=== PATIENT | male | born 1970 | race Caucasian/White ===

== ENCOUNTER 2021-10-08 10:37 | Inpatient (IN) | payer MEDICARE, MEDICAID ==
[2021-10-08] VITALS (10 sets, daily range): BP systolic 94–127; BP diastolic 53–65
[~2021-10-08] VITALS: Ht 167.6 cm; Wt 100.2 kg
[~2021-10-08 10:37] MED LIST: AMLODIPINE BESY10 MG PO; BENZTROPINE MESY2 MG PO; CLOTRIMAZOLE-BE30 M1 TP; COLACE100 MG PO; FISH OIL 1,001000 M2 PO; FISHOIL; FLONASE 0.05%50 MCG NASAL; FLONASE 0.05%50 MCG NS; FOLIC ACID1 MG PO; GEODON40 MG PO; GEODON60 MG PO; HYDROCERIN CREA1 JAR TOP; HYDROCHLOROTHIA25 M1 PO; LAMISIL AT 1% C12 G1 TP; LIPITOR40 MG PO; LISINOPRIL-HCT1 EACH PO; MELOXICAM7.5 MG PO; METFORMIN HCL500 MG PO; MIRALAX17 GM PO; OMEPRAZOLE20 M2 PO; OYSTER SHELL C1 EA12 PO; OYSTER SHELL C500 MG PO; PHENOBARBITAL30 MG PO; POLYETHYLENE G255 GM PO; TOPAMAX 25 MG T25 MG PG; TOPAMAX200 MG PO; TOPICORT 0.25%15 GM TOP; TRICOR145 MG PO; TRIFLUOPERAZINE10 MG PO; TUCKS MEDICATE1 EAC1; TUMS PO; TYLENOL EXTRA500 MG PO; TYLOX 5-500 CA1 EACH PO; VICODIN 5-5001 EACH PO; ZETIA10 MG PO
[2021-10-08 11:36] LABS: HEMATOCRIT 28.2 % (42.0-52.0); HEMOGLOBIN 10.2 gm/dL (14.0-18.0); MCH 29.8 pg (26.0-34.0); MCV 82.7 fL (80.0-100.0); MPV 7.4 fl. (7.2-11.1); NUCLEATED RBCS 0 /100WBC; PLATELET COUNT* 473 thou/uL (150-400); RBC 3.41 mil/uL (4.50-6.00); RDW-CV 13.4 % (10.5-14.5); WBC 10.7 thou/uL (4.0-11.0)
[2021-10-08 11:42] LABS: CALCIUM 9.4 mg/dL (8.5-10.1)
[2021-10-08 11:49] LABS: POTASSIUM 2.6 mmol/L (3.5-5.1)
[2021-10-08 11:52] LABS: APTT 31.8 Seconds (25.0-31.3); INR 1.3; PROTIME 13.4 Seconds (9.20-11.50)
[2021-10-08 11:53] LABS: ALBUMIN 2.2 g/dL (3.4-5.0); TOTAL PROTEIN 7.5 g/dL (6.4-8.2)
[2021-10-08 12:19] LABS: ABSOLUTE LYMPHOCYTES 0.5 thou/uL (0.8-5.3); ABSOLUTE MONOCYTES 0.2 thou/uL (0.0-1.2)
[2021-10-08 12:20] LABS: PLATELET ESTIMATE INCREASED
--- NOTE | 2021-10-08 12:34 | EKG ---
[place] [address] ELECTROCARDIOGRAM REPORT Name: KIRILLPRATIK Noel Room: [place] [address] ADM IN ..#: [id number] Admission: 10/08/21 Attend Phys: Yareli Mcdermott, Discharge: Date of : 74 Date of Service: 10/08/21 1058 Report #: [id number] THIS REPORT FOR: //name// [facility] ED Test Date: 2021-10-08 Test Time: 10:58:34 Pat Name: PRATIK ROY Department: Room: [facility] Gender: M Service Tester: ELDON : 1970 Requested By: Rm Otero Order Number: [id number] MD: Dayton Suggs Measurements Intervals [place] Rate: 107 P: 25 IL: 183 QRS: 25 QRSD: 104 T: 28 QT: 337 QTc: 450 Interpretive Statements Sinus tachycardia RSR' in V1 or V2, right VCD or RVH Compared to ECG 01/17/2017 21:34:07 Right ventricular hypertrophy now present RSR' in V1 or V2 now present Sinus rhythm no longer present Electronically Signed On 10-08-2021 12:34:51 OFFICE ADMINISTRATION INSTRUCTOR by Dayton Suggs [email or web address] <ELECTRONICALLY SIGNED> By: Dayton Suggs MD, FACC 10/08/21 1234 1058 1058 Dayton Suggs MD, FAC /EPI
[2021-10-08 13:27] LABS: PCO2 33.5 mmHg (35.0-45.0)
[2021-10-08 13:32] LABS: PO2 154.7 mmHg (75.0-100.0)
[2021-10-08 16:55] LABS: CALCIUM 8.3 mg/dL (8.5-10.1); CREATININE 0.8 mg/dL (0.6-1.3)
[2021-10-08 17:34] LABS: POTASSIUM 2.9 mmol/L (3.5-5.1)
[2021-10-08 20:42] LABS: BE -5.5 mmol/L (-2 to +3); PCO2 45.3 mmHg (35.0-45.0)
[2021-10-08 20:45] LABS: PO2 169.9 mmHg (75.0-100.0); pH 7.287 (7.340-7.450)
--- NOTE | 2021-10-08 22:45 | CON ---
[address] [address] CONSULTATION Name: PRATIK ROY Room: [address] IN M.R.#: [id number] Admission: 10/08/21 Attend Phys: Yareli Mcdermott MD Discharge: Date of : 74 Report #: [id number] THIS REPORT FOR: cc: Ina Crespo Angela Jo RNP Pervez, Adeel MD ~ DATE OF CONSULTATION: 10/08/2021 CONSULT HAS BEEN REQUESTED BY: Dr. Mcdermott. INDICATION FOR CONSULTATION: Acute hypoxemic respiratory failure. HISTORY OF PRESENT ILLNESS: This is a 51-year-old gentleman, past medical history is as mentioned below. The patient currently is in respiratory distress and therefore, he is not able to provide a meaningful history or review of systems. According to the records, he has been short of breath and coughing for about 2 weeks. He has not received any COVID-19 vaccine. He is reported to have a history of coronary artery disease. I do not have his previous left ventricular ejection fraction. He is not reported to be a smoker. Currently, the patient is on BiPAP with 100% FiO2. It appeared that his O2 saturation has come up to 99%. However, he remains in respiratory distress and is still breathing at around 50, this is despite a Precedex drip running. His potassium was critically low at 2.6. He is reported to have had 40 of potassium p.o. I do not have a magnesium level. Note that he takes hydrochlorothiazide at home. His D-dimer is critically high at greater than 28. He is not able to provide a further history or review of systems. PAST MEDICAL HISTORY: Coronary artery disease, left ventricular ejection fraction not available. HOME MEDICATIONS: Consistent with history of hypertension, although not listed on the records. Drug overdosage details not available. Paranoia, schizoaffective disorder, hallucinations, anxiety. SOCIAL HISTORY: There is no known history of smoking, ethanol abuse, or drug abuse. CURRENT MEDICATIONS: List in [employer] reviewed. HOME MEDICATIONS: List in [employer] reviewed. ALLERGIES: STRAWBERRY AND POISON OAK. FAMILY HISTORY: [place] [address] CONSULTATION Name: PRATIK ROY Room: [address]#: [id number] Admission: 10/08/21 Attend Phys: Yareli Mcdermott MD Discharge: Date of : 74 Report #: [id number] VACCINATION HISTORY: Not reported to be vaccinated for COVID-19. PHYSICAL EXAMINATION: GENERAL: He is awake, but he is in respiratory distress and therefore unable to provide a history or review of systems. VITAL SIGNS: Heart rate with Precedex is 100, but respiratory rate is 50, blood pressure is 115/81. His O2 saturation has come up to 99% with 100% BiPAP in place. Temperature is 37.2. HEENT: Head is normocephalic and atraumatic. BiPAP in place. NECK: Does not show raised JVP, asymmetry, mass or lymph nodes. CHEST: Symmetrical expansion on inspection and palpation. On auscultation, breath sounds are bilaterally equal. Accessory muscle use tachypnea. HEART: Regular. No murmur. ABDOMEN: Soft and nontender. EXTREMITIES: Lower extremities, trace edema, no calf tenderness. SKIN: Dry and intact. NEUROLOGIC: Moves all extremities bilaterally equally and spontaneously with no focal deficits identified. LABORATORY DATA: The patient's chest x-ray from this morning consistent with ARDS in [facility] reviewed. Acute pulmonary edema can also lead to an identical picture. Venous Dopplers are negative. Lab work in [facility] reviewed. Arterial blood gas in [facility] reviewed. ASSESSMENT AND PLAN: 1. Acute hypoxemic respiratory failure. The patient remains in respiratory distress despite administration of a Precedex drip. Recommend proceeding to endotracheal intubation. Also, recommend placing either a PICC line or central line if both of these are available, then I would prefer a PICC line. Since we currently have limited IV access and his blood pressure is on the lower side and therefore, our ability to administer pressors may be limited. I initially ordered Versed and fentanyl. Certainly if blood pressure remains stable, or we are able to administer low doses of vasopressors if needed, then we can give him propofol instead of Versed as well. We will follow for now. Continue with Precedex drip as well, but I may take it off once he is settled on the ventilator. His blood pressure may drop off this intubated. Her potassium was critically low; therefore, I do not want to give him norepinephrine and therefore, I ordered phenylephrine. If blood pressure drops after potassium replacement, we will switch this over to norepinephrine if needed. 2. Pulmonary infiltrates/probable acute respiratory distress syndrome/probable COVID-19 dexamethasone, remdesivir. We will follow LFTs. Actemra 1 dose, agree with doxycycline, switched ceftriaxone over to cefepime. We will do cultures and then assess further. Nebulized bronchodilators. [address] [address] CONSULTATION Name: PRATIK ROY Room: [address] IN [facility].#: [id number] Admission: 10/08/21 Attend Phys: Yareli Mcdermott MD Discharge: Date of : 74 Report #: [id number] 3. Severe hypokalemia/history of hydrochlorothiazide use. We will give him potassium IV as soon as central access is established. Check magnesium and replace if indicated. 4. Fluid overload. Plan to diurese him, obviously will correct his potassium first. Check echo. 5. Critical high D-dimer, agree that we should evaluate for thromboembolism whenever he is stable enough, we should do a CTA chest. Also, recommend echocardiogram as above. However, considering markedly elevated D-dimer, we may elect to continue full dose anticoagulation even if the workup for thromboembolism is negative. 6. Gastrointestinal prophylaxis, Protonix. 7. Hyperglycemia, insulin sliding scale. 8. Clostridium difficile prophylaxis, Lactinex. 9. Past medical history of coronary artery disease/anxiety/paranoia/schizoaffective disorder. The patient is critically ill at this time. Total time spent providing critical care to this patient today exceeds 45 minutes. <ELECTRONICALLY SIGNED> By: Floyd Beard MD 10/08/21 2245 1510 1923Ajesus Beard MD /nt
[2021-10-08 23:03] LABS: CREATININE 0.8 mg/dL (0.6-1.3); MAGNESIUM 2.2 mg/dL (1.8-2.4); POTASSIUM 3.6 mmol/L (3.5-5.1)
[2021-10-09] VITALS (46 sets, daily range): BP systolic 91–131; BP diastolic 52–78
[2021-10-09 00:01] LABS: INFLUENZA A ANTIGEN Negative (Negative); INFLUENZA B ANTIGEN Negative (Negative)
[2021-10-09 00:03] LABS: CALCIUM 8.8 mg/dL (8.5-10.1); CREATININE 0.9 mg/dL (0.6-1.3); MAGNESIUM 2.3 mg/dL (1.8-2.4); POTASSIUM 3.7 mmol/L (3.5-5.1)
--- NOTE | 2021-10-09 04:41 | NUR ---
ASSUMED CARE AT 1900H, ON VENT AT 80% AND TOLERATED. SFENTANYL AND VERSED ON MAX DOSE. PT TAKING SMALL BREATH, PROPOFOL TITRTED UP. JIM(HYPO SPLASHER OF PT) CALLED AND UPDATE GIVEN. CONTINUE MONITORING AND TOWARDS GOALS. PROPOFOL AT MAX DOSE.
[2021-10-09 06:13] LABS: ABSOLUTE LYMPHOCYTES 0.4 thou/uL (0.8-5.3); ABSOLUTE MONOCYTES 0.2 thou/uL (0.0-1.2); ABSOLUTE NEUTROPHILS 6.5 thou/uL (1.6-8.1); BASOPHILS 0.1 %; EOSINOPHILS 0.2 %; HEMOGLOBIN 9.1 gm/dL (14.0-18.0); LYMPHOCYTES 5.8 %; MCH 30.2 pg (26.0-34.0); MCHC 34.8 g/dL (28.0-37.0); MCV 86.8 fL (80.0-100.0); MONOCYTES 3.2 %; MPV 7.2 fl. (7.2-11.1); NUCLEATED RBCS 0 /100WBC; PLATELET COUNT* 423 thou/uL (150-400); POLYS 90.7 %; RDW-CV 13.5 % (10.5-14.5); WBC 7.2 thou/uL (4.0-11.0)
[2021-10-09 07:11] LABS: ALBUMIN 1.9 g/dL (3.4-5.0); CALCIUM 9.3 mg/dL (8.5-10.1); CREATININE 0.8 mg/dL (0.6-1.3); MAGNESIUM 2.2 mg/dL (1.8-2.4); POTASSIUM 3.8 mmol/L (3.5-5.1); TOTAL BILIRUBIN 0.6 mg/dL (<0.1-1.0); TOTAL PROTEIN 7.1 g/dL (6.4-8.2)
[2021-10-09 07:23] LABS: PHOSPHORUS* 3.1 mg/dL (2.5-4.9)
[2021-10-09 08:10] LABS: BE -6.1 mmol/L (-2 to +3); PCO2 47.6 mmHg (35.0-45.0)
[2021-10-09 08:11] LABS: PO2 230.6 mmHg (75.0-100.0)
[2021-10-09 08:15] LABS: pH 7.258 (7.340-7.450)
--- NOTE | 2021-10-09 09:08 | NUR ---
Pt is admitted on 10/08/21 with Covid 19/Respiratory Infection. Pt has an extensive psychiatric hx. He lives at an [facility] at [address] in [place]. The following contact information is in chart: Friend - Eloise Pablo [phone] Director [employer] of [facility]: Peter ravisary - Swamper - Jonny Gonzalez - . Called Eloise to complete assessment. She report she is a retired RN and friend of patient. She reports he has lived at [facility] for 12 years. She confirms he does not have a guardian. Pt was previously independent for ADL's and Mobility. No hx of HH/DME/or SNF. Eloise is reporting pt has no family. Pt is in the ICU vented and sedated. CM to continue to follow for discharge planning.
[2021-10-09 15:52] LABS: BE -2.4 mmol/L (-2 to +3); PCO2 39.5 mmHg (35.0-45.0); PO2 74.2 mmHg (75.0-100.0); pH 7.375 (7.340-7.450)
[2021-10-10] VITALS (23 sets, daily range): BP systolic 106–147; BP diastolic 59–85
[2021-10-10 05:44] LABS: HEMATOCRIT 27.2 % (42.0-52.0); HEMOGLOBIN 9.6 gm/dL (14.0-18.0); MCH 30.5 pg (26.0-34.0); MCHC 35.3 g/dL (28.0-37.0); MCV 86.4 fL (80.0-100.0); MPV 7.3 fl. (7.2-11.1); RBC 3.15 mil/uL (4.50-6.00); RDW-CV 13.7 % (10.5-14.5); WBC 5.3 thou/uL (4.0-11.0)
[2021-10-10 06:02] LABS: CALCIUM 8.9 mg/dL (8.5-10.1); CREATININE 0.9 mg/dL (0.6-1.3); POTASSIUM 3.5 mmol/L (3.5-5.1)
--- NOTE | 2021-10-10 12:01 | NUR ---
ICU Rounds: Continues to be Vented and Sedated Isolation: Continues to be in Isolation Intubated: 10/08/21 Living Situation: Lives at [facility] in [place], [place] O2: 40% Fi02 Peep of 8 DPOA: None Found and Pt does not have a guardian/ No Family Continue to follow for discharge planning.
--- NOTE | 2021-10-10 19:00 | NUR ---
pT STABLE ON VENT, 40% 8 OF PEEP. DESCISION MADE BY TEAM NOT TO PRONE, TF STARTED THIS AFTERNOON AT TRICKLE. TITRATED DOWN SEDATION TOLERATED, PT BECOMES DESYNCRONUS, TACHYPNIC, COUCHING, AND BEGINS TO DESAT. PT AWAKENS BUT DOES NOT FOLLOW COMMANDS, CHEWS ON TUBE AND GUADARRAMA NON-PURPOSFULY. VSS, NO BM THIS SHIFT.
[2021-10-11] VITALS (41 sets, daily range): BP systolic 94–147; BP diastolic 49–86
[2021-10-11 04:32] LABS: HEMATOCRIT 29.7 % (42.0-52.0); HEMOGLOBIN 9.9 gm/dL (14.0-18.0); MCH 29.6 pg (26.0-34.0); MCHC 33.4 g/dL (28.0-37.0); MCV 88.6 fL (80.0-100.0); MPV 6.9 fl. (7.2-11.1); RBC 3.36 mil/uL (4.50-6.00); RDW-CV 14.2 % (10.5-14.5); WBC 5.6 thou/uL (4.0-11.0)
[2021-10-11 04:53] LABS: CALCIUM 8.5 mg/dL (8.5-10.1); CREATININE 0.9 mg/dL (0.6-1.3); POTASSIUM 3.7 mmol/L (3.5-5.1)
--- NOTE | 2021-10-11 16:49 | NUR ---
RECEIVED REPORT FROM CABIN MAN AT 1420. PATIENT TO ROOM 108 AT 1610. PATIENT SEDATED AND ON VENTILATOR PER ET TUBE. SECURE AT 23 AT LIP. SEDATEDWITH PRECEDEX AT 1.5MCG/KG/HR, VERSED DRIP at 10mg/hr, and FENTANYL DRIP AT 125MCG/MCG/HR.
[2021-10-12] VITALS (34 sets, daily range): BP systolic 91–142; BP diastolic 48–83
[2021-10-12 06:06] LABS: HEMOGLOBIN 10.3 gm/dL (14.0-18.0); MCH 29.3 pg (26.0-34.0); MCHC 33.3 g/dL (28.0-37.0); MCV 87.8 fL (80.0-100.0); MPV 6.9 fl. (7.2-11.1); RBC 3.53 mil/uL (4.50-6.00); RDW-CV 14.2 % (10.5-14.5); WBC 6.4 thou/uL (4.0-11.0)
[2021-10-12 06:09] LABS: CALCIUM 8.6 mg/dL (8.5-10.1); CREATININE 0.9 mg/dL (0.6-1.3); POTASSIUM 4.1 mmol/L (3.5-5.1)
--- NOTE | 2021-10-12 06:36 | NUR ---
PT CONTINUES ON VENT A/C TV 510, PEEP 8, 40% FiO2, RATE 22. VITAL SIGNS REMAIN STABLE. FEVER THIS SHIFT, TEMP 101.4. PRN ACETAMINOPHEN GIVEN. Q2H PREPOSITIONING COMPLETED. SR ON GENERAL MANAGER. O2 SAT ABOVE 92% THIS SHIFT.
--- NOTE | 2021-10-12 15:28 | 2DMMODE ---
[place] [address] 2 D/M-MODE ECHOCARDIOGRAM Name: PRATIK ROY Room: [address] IN ..#: [id number] Admission: 10/08/21 Attend Phys: Yareli Mcdermott, Discharge: Date of : 74 Date of Service: 10/12/21 1527 Report #: [id number] THIS REPORT FOR: cc: Ina Crespo Angela Jo RNP Holkins, John M. MD [facility] ~ APPROVED REPORT Study performed: 10/12/2021 11:07:28 EXAM: Comprehensive 2D, Doppler, and color-flow Echocardiogram Patient Location: In-Patient Room #: 108 Status: routine BSA: 2.08 HR: 71 bpm BP: 132/80 mmHg Rhythm: NSR Indications Dyspnea 2D Dimensions IVSd: 11.10 (7-11mm) LVOT Diam: 23.47 (18-24mm) LVDd: 45.46 mm PWd: 10.88 (7-11mm) Ascending Ao: 33.65 (22-36mm) LVDs: 29.84 (25-40mm) Aortic Root: 37.25 mm Volumes Left Atrial Volume (Systole) LA ESV Index: 21.50 mL/m2 Aortic Valve AoV Peak Sergey.: 1.24 m/s AO Peak Gr.: 6.16 mmHg LVOT Max P.26 mmHg AO Mean Gr.: 3.26 mmHg LVOT Mean P.21 mmHg LVOT Max V: 1.03 m/s AO V2 VTI: 21.77 cm LVOT Mean V: 0.69 m/s CURT (VTI): 4.05 cm2 LVOT V1 VTI: 20.40 cm Mitral Valve E/A Ratio: 1.69 MV Decel. Time: 213.41 [place] [address] 2 D/M-MODE ECHOCARDIOGRAM Name: PRATIK ROY Room: [address] IN .R.#: [id number] Admission: 10/08/21 Attend Phys: Yareli Mcdermott, Discharge: Date of : 74 Date of Service: 10/12/21 1527 Report #: [id number] MV E Max Sergey.: 0.82 m/s MV PHT: 61.89 ms MVA (PHT): 3.55 cm2 TDI E/Lateral E': 6.31 E/Medial E': 5.47 Medial E' Sergey.: 0.15 m/s Lateral E' Sergey.: 0.13 m/s Pulmonary Valve PV Peak Sergey.: 0.90 m/s PV Peak Gr.: 3.21 mmHg Left Ventricle The left ventricle is normal size. There is normal LV segmental wall motion. There is normal left ventricular wall thickness. Left ventricular systolic function is normal. The left ventricular ejection fraction is within the normal range. LVEF is 55-60%. The left ventricular diastolic function is normal. Right Ventricle The right ventricle is normal size. The right ventricular systolic function is normal. Atria The left atrium size is normal. The right atrium size is normal. Aortic Valve The aortic valve is normal in structure. No aortic regurgitation is present. There is no aortic valvular stenosis. Mitral Valve The mitral valve is normal in structure. Trace mitral regurgitation. No evidence of mitral valve stenosis. Tricuspid Valve The tricuspid valve is normal in structure. Trace tricuspid regurgitation. Unable to assess PA pressure. Pulmonic Valve The pulmonary valve is normal in structure. There is no pulmonic valvular regurgitation. Great Vessels The aortic root is normal in size. IVC is normal in size and collapses >50% [place] [address] 2 D/M-MODE ECHOCARDIOGRAM Name: KIRILLPRATIK Noel Room: [address] IN ..#: [id number] Admission: 10/08/21 Attend Phys: Yareli Mcdermott, Discharge: Date of : 74 Date of Service: 10/12/21 1527 Report #: [id number] Pericardium There is no pericardial effusion. <Conclusion> The left ventricle is normal size. There is normal left ventricular wall thickness. Left ventricular systolic function is normal. The left ventricular ejection fraction is within the normal range. LVEF is 55-60%. The left ventricular diastolic function is normal. The right ventricle is normal size. The left atrium size is normal. The aortic valve is normal in structure. The mitral valve is normal in structure. The tricuspid valve is normal in structure. IVC is normal in size and collapses >50% with inspiration. There is no pericardial effusion. There is normal LV segmental wall motion. <ELECTRONICALLY SIGNED> By: Cristofer Bagley MD, FACC 10/12/21 1527 1527 1527 Cristofer Bagley MD, FACC /INF
--- NOTE | 2021-10-12 17:14 | NUR ---
CM FOLLOWUP PT NOT MED CLEAR AND ON VENT. CM TO FOLLOW FOR FUTURE DC NEEDS.
[2021-10-12 17:28] LABS: BE 1.6 mmol/L (-2 to +3); PCO2 39.9 mmHg (35.0-45.0); PO2 73.5 mmHg (75.0-100.0); pH 7.431 (7.340-7.450)
[2021-10-12 20:56] LABS: ALBUMIN 2.2 g/dL (3.4-5.0); DIRECT BILIRUBIN 0.4 mg/dL (<0.1-0.3); TOTAL BILIRUBIN 0.6 mg/dL (<0.1-1.0); TOTAL PROTEIN 7.1 g/dL (6.4-8.2)
[2021-10-13] VITALS (26 sets, daily range): BP systolic 93–137; BP diastolic 52–86
[2021-10-13 06:04] LABS: HEMATOCRIT 31.6 % (42.0-52.0); HEMOGLOBIN 10.4 gm/dL (14.0-18.0); MCH 29.4 pg (26.0-34.0); MCHC 32.8 g/dL (28.0-37.0); MCV 89.5 fL (80.0-100.0); MPV 7.5 fl. (7.2-11.1); NUCLEATED RBCS 0 /100WBC; PLATELET COUNT* 520 thou/uL (150-400); RBC 3.53 mil/uL (4.50-6.00); RDW-CV 14.1 % (10.5-14.5); WBC 8.5 thou/uL (4.0-11.0)
[2021-10-13 06:38] LABS: ALBUMIN 2.7 g/dL (3.4-5.0); CALCIUM 8.8 mg/dL (8.5-10.1); CREATININE 0.9 mg/dL (0.6-1.3); POTASSIUM 3.9 mmol/L (3.5-5.1); TOTAL BILIRUBIN 0.7 mg/dL (<0.1-1.0); TOTAL PROTEIN 7.3 g/dL (6.4-8.2)
[2021-10-13 06:58] LABS: PHOSPHORUS* 2.2 mg/dL (2.5-4.9)
[2021-10-13 07:15] LABS: ABSOLUTE LYMPHOCYTES 1.4 thou/uL (0.8-5.3); ABSOLUTE MONOCYTES 0.6 thou/uL (0.0-1.2); ABSOLUTE NEUTROPHILS 6.5 thou/uL (1.6-8.1)
[2021-10-13 07:16] LABS: PLATELET ESTIMATE INCREASED
[2021-10-13 08:10] LABS: ANTI-Xa-UNFRACTIONATED HEP 7.402; BE 1.4 mmol/L (-2 to +3); PCO2 39.8 mmHg (35.0-45.0); PO2 89.6 mmHg (75.0-100.0); pH 7.429 (7.340-7.450)
[2021-10-13 09:38] LABS: URINE BILIRUBIN NEGATIVE (Negative); URINE BLOOD NEGATIVE (Negative); URINE CLARITY CLEAR; URINE COLOR YELLOW; URINE GLUCOSE-RANDOM NEGATIVE (Negative); URINE KETONES NEGATIVE (Negative); URINE LEUKOCYTES-REFLEX NEGATIVE (Negative); URINE NITRITE-REFLEX NEGATIVE (Negative); URINE PROTEIN NEGATIVE (Negative); URINE SPECIFIC GRAVITY 1.025 (1.005-1.030); URINE UROBILINOGEN 0.2 E.U./dl (0.2-1.0)
--- NOTE | 2021-10-13 17:14 | NUR ---
CM FOLLOWUP PT NOT MED CLEAR AND VENTED. CM TO FOLLOW FOR FUTURE DC NEEDS.
--- NOTE | 2021-10-13 19:57 | NUR ---
PT REMAINS STABLE ON VENT, FIO2 40%. STOPPED VERSED AND FENTANYL WITH PLAN TO EXTUBATE, PT WAS NOT ABLE TO WAKE UP ENOUGH FOR EXTUBATION, PLAN TO RETRY TOMORROW PER DR. KINCAID. PT REMAINS FEBRILE THROUGHOUT SHIFT WITH TEMPS UP TO 101.9, PRN TYLENOL ADMINISTERED WELL COOL CLOTHS TO HEAD AND UNDERARMS. REPOSITIONED/TURNED Q 2 HOURS, PT TOLERATED WELL, WILL CONT POC.
[2021-10-14] VITALS (19 sets, daily range): BP systolic 100–137; BP diastolic 56–86
[2021-10-14 05:12] LABS: URINE BILIRUBIN NEGATIVE (Negative); URINE BLOOD 2+ (Negative); URINE CLARITY CLEAR; URINE COLOR YELLOW; URINE GLUCOSE-RANDOM NEGATIVE (Negative); URINE KETONES NEGATIVE (Negative); URINE LEUKOCYTES-REFLEX NEGATIVE (Negative); URINE NITRITE-REFLEX NEGATIVE (Negative); URINE PROTEIN NEGATIVE (Negative)
[2021-10-14 05:34] LABS: PHOSPHORUS* 2.7 mg/dL (2.5-4.9)
[2021-10-14 05:47] LABS: ALBUMIN 2.6 g/dL (3.4-5.0); CALCIUM 8.7 mg/dL (8.5-10.1); CREATININE 0.8 mg/dL (0.6-1.3); MAGNESIUM 2.2 mg/dL (1.8-2.4); POTASSIUM 4.2 mmol/L (3.5-5.1); TOTAL BILIRUBIN 0.6 mg/dL (<0.1-1.0); TOTAL PROTEIN 7.2 g/dL (6.4-8.2)
[2021-10-14 06:28] LABS: ABSOLUTE MONOCYTES 0.5 thou/uL (0.0-1.2); ABSOLUTE NEUTROPHILS 7.6 thou/uL (1.6-8.1); BASOPHILS 0.4 %; EOSINOPHILS 0.1 %; HEMOGLOBIN 10.9 gm/dL (14.0-18.0); LYMPHOCYTES 10.6 %; MCH 29.6 pg (26.0-34.0); MCHC 33.1 g/dL (28.0-37.0); MCV 89.4 fL (80.0-100.0); MONOCYTES 5.3 %; MPV 7.9 fl. (7.2-11.1); NUCLEATED RBCS 0 /100WBC; POLYS 83.6 %; RBC 3.69 mil/uL (4.50-6.00); WBC 9.1 thou/uL (4.0-11.0)
[2021-10-14 06:29] LABS: PLATELET COUNT* 424 thou/uL (150-400)
[2021-10-14 06:46] LABS: CASTS None Seen /LPF (None Seen); SQUAMOUS NONE SEEN /LPF (0-3)
[2021-10-14 06:47] LABS: BACTERIA-REFLEX None Seen /HPF (None Seen); CRYSTALS None Seen /LPF (None Seen); URINE RBC >20 Many /HPF (0-2); URINE WBC-REFLEX 0-5 Rare /HPF (0-5)
--- NOTE | 2021-10-14 06:59 | NUR ---
PT CONTINUES ON VENT A/C. FENTANYL STARTED OVERNIGHT FOR CONTINUED SEDATION PATIENT STARTED TO WAKE UP RESTLESS/BITING VENT. FEVERS OVERNIGHT, PRN ACETAMINOPHEN ADMINISTERED. AT 0656, PT BECAME TACHYCARDIC 140'S. PT OBSERVED TO BE HAVING SEIZURE-LIKE ACTIVITY AEB INVOLUNTARY MOVEMENT OF UPPER AND LOWER EXTREMITIES AND FACIAL TWITCHING. EVENT LASTED APPROX ONE MINUTE THEN BACK TO BASELINE. DR. GARCIA NOTIFIED.
--- NOTE | 2021-10-14 17:18 | NUR ---
CM FOLLOWUP PT NOT MED CLEAR AND ON VENT. CM TO FOLLOW FOR FUTURE DC NEEDS.
--- NOTE | 2021-10-14 21:32 | NUR ---
I ASSUMED CARE OF THE PATIENT AT 0700. HE IS INTUBATED AND SEDATED. BED IS IN THE LOW LOCKED POSITION AND CALL LIGHT IS IN REACH. PATIENT NEEDS ARE MET DURING HOURLY ROUNDING. ISOLATION IS MAINTAINED. ET TUBE IS MAINTAINED, ORAL CARE IS GIVEN, FEEDS ARE ON HOLD, BUT MEDS ARE GIVEN VIA TUBE. THERE WAS NO TIME TO COMPLETED THE ENEMA TODAY, BUT SHOP TAILOR WILL GET IT DONE, DISCUSSED IN REPORT. FENTANYL WAS RESTARTED SINCE WEANING TRIAL DIDN'T OCCUR TODAY. WILL CONTINUE TO MONITOR. BLOOD GLUCOSE IS MONITORED Q6 HOURS PER ICU STANDARD. PER DR. KINCAID, FENTANYL SHOULD STOP AT 0800 ON 10/14 AND WEANING TRIAL SHOULD START AFTER HE IS AWAKE. [facility] WOULD LIKE TO BE CALLED WHEN THE TRIAL BEGINS. RT WILL PASS ON INFO IN MORNING REPORT.
[2021-10-15] VITALS (23 sets, daily range): BP systolic 11–135; BP diastolic 44–85
--- NOTE | 2021-10-15 03:12 | NUR ---
ASSUMED CARE OF PT AT ABOUT 2200. PT IS CURRENTLY SEDATED ON THE VENTILATOR. PT HAS BEEN AND STILL IS RUNNING HIGH FEVERS. TYLENOL GIVEN EVERY 4 HOURS. VENT SETTINGS ARE AC, VT 510, PEEP 5, RR 18, FIO2 40%. ICE PACKS PLACED IN BETWEEN LEGS AND UNDER ARMS. Q2 TURNS, PEREZ IN PLACE. ORAL CARE EVERY 4 HOURS. PT IS IN SINUS RYTHM ON THE TELEMETRY. PT IS RESTING COMFORTABLY IN BED. RESPIRATIONS ARE EVEN AND NONLABORED. WILL CONTINUE TO MONITOR PT.
--- NOTE | 2021-10-15 06:52 | NUR ---
WEANING PT OFF FENTANYL PER DR KINCAID FOLLOWS: 0400: TURNED DOWN TO 100 MCG/HR 0430: TURNED DOWN TO 75 MCG/HR 0515: TURNED DOWN TO 50 MCG/HR 0555: TURNED OFF PT IS MOVING ALL EXTREMITIES, PT IS GRIMACING AT TIMES BUT HAS NOT OPENED HIS EYES. PT RESPONDS TO PAIN, PT IS NOT OPENING HIS EYES YET.
[2021-10-15 07:08] LABS: ABSOLUTE LYMPHOCYTES 1.6 thou/uL (0.8-5.3); ABSOLUTE MONOCYTES 0.6 thou/uL (0.0-1.2); ABSOLUTE NEUTROPHILS 7.5 thou/uL (1.6-8.1); BASOPHILS 0.4 %; HEMATOCRIT 33.9 % (42.0-52.0); HEMOGLOBIN 11.1 gm/dL (14.0-18.0); LYMPHOCYTES 16.7 %; MCH 29.4 pg (26.0-34.0); MCHC 32.8 g/dL (28.0-37.0); MCV 89.6 fL (80.0-100.0); MONOCYTES 6.3 %; MPV 8.6 fl. (7.2-11.1); NUCLEATED RBCS 0 /100WBC; PLATELET COUNT* 355 thou/uL (150-400); POLYS 76.6 %; RBC 3.79 mil/uL (4.50-6.00); RDW-CV 14.3 % (10.5-14.5); WBC 9.8 thou/uL (4.0-11.0)
[2021-10-15 07:22] LABS: ALBUMIN 2.8 g/dL (3.4-5.0); CALCIUM 8.8 mg/dL (8.5-10.1); CREATININE 1.1 mg/dL (0.6-1.3); MAGNESIUM 2.3 mg/dL (1.8-2.4); TOTAL BILIRUBIN 0.8 mg/dL (<0.1-1.0); TOTAL PROTEIN 7.3 g/dL (6.4-8.2)
--- NOTE | 2021-10-15 16:00 | NUR ---
ASSUMED CARE OF PT FROM STEFFANY MACIAS RN. PLEASE SEE DOCUMENTED ASSESSMENT. UNABLE TO CHART ASSESSMENT UNDER CRITICAL CARE INTERVENTION WAS LOCKED BY STEFFANY MACIAS RN. CRITICAL CARE ASSESSMENT CHARTED UNDER REASSESSMENT. PT COUGHING AND BUCKING THE VENT UPON INITIAL ASSESSMENT, BOTH FEET OUT OF BED. REORIENTATION PROVIDED. COPIOUS AMOUNTS OF SECRETIONS NOTED IN ET TUBE (THICK BROWN) AND IN MOUTH. ORAL CARE GIVEN, SUCTIONED. PT REQUIRED 2 DOSES OF PRN VERSED AFTER THIS [employer] PROFESSOR ASSUMED CARE. DR. KINCAID ROUNDED, PT STARTED ON VERSED GTT. MERREM ADDED TO ANTIBIOTIC REGIMEN. OG TUBE REPLACED. KUB ORDERED BY DIRECTOR OF PHILANTHROPY NURSE. REPORT GIVEN TO BRE WERNER.
--- NOTE | 2021-10-15 17:25 | NUR ---
CM FOLLOWUP PT NOT MED CLEAR AND ON VENT. CM TO FOLLOW FOR FUTURE DC NEEDS.
--- NOTE | 2021-10-15 17:58 | NUR ---
Attempted to perform weening trial this morning. Fentanyl being held at this time, Presedex at 1.5mcg. Pt coughing thick copius secretions from ETT and around ETT. restless, bucking vent, pulling at restraints at times. Versed 2mg iv push given at 1400. Temp 102.6 this afternoon. Ice placed to underarms and Tylenol given. Reported to Dr Osorio. Blood tinged urine noted in mejia bag and reported to Dr Anne. Dr Beard here at this time. No seizure activity noted today. Report given to Abhishek RN.
--- NOTE | 2021-10-15 22:43 | NUR ---
KUB CONFIRMED PLACEMENT OF OG TUBE. FENTANYL DRIP DICONTINUED PER DR KINCAID. VERSED INCREASED TO 3MG/HR AT 1999. THEN 4 MG/HR AT 2099. INCREASED TO 5 MG/HR AT 2119. AND INCREASED TO 6 MG/HR AT 2199. VERSED WAS TITRATED UP BECAUSE PT WOKE UP WHEN FENTANYL TURNED OFF AT 2099. WHEN PT WOKE UP ABOUT 2129, HE WAS ABLE TO FOLLOW COMMANDS TO SQUEEZE FINGERS, THEN LET GO AND SQUEEZE AGAIN.
[2021-10-15 23:02] LABS: URINE BILIRUBIN NEGATIVE (Negative); URINE BLOOD 3+ (Negative); URINE CLARITY SL CLOUDY; URINE COLOR RED; URINE GLUCOSE-RANDOM NEGATIVE (Negative); URINE KETONES TRACE (Negative); URINE LEUKOCYTES TRACE (Negative); URINE NITRITE NEGATIVE (Negative); URINE PROTEIN 1+ (Negative); URINE SPECIFIC GRAVITY 1.015 (1.005-1.030)
[2021-10-15 23:10] LABS: ACETEST (KETONE CONFIRMATORY) Negative (Negative)
[2021-10-15 23:11] LABS: BACTERIA None Seen /HPF (None Seen); CASTS None Seen /LPF (None Seen); CRYSTALS None Seen /LPF (None Seen); SQUAMOUS 4-10 Moderate /LPF (0-3); URINE WBC 0-5 Rare /HPF (0-5)
--- NOTE | 2021-10-15 23:26 | NUR ---
RECEDEX STARTED AND VERSED BEING LOWERED PER DR KINCAID. AT 1999, PRECEDEX STARTED AT 0.2MCG/KG/HR. VERSED TURNED DOWN TO 2 MG/HR AND FENTANYL TURNED UP TO 75MCG/HR. AT 2100, VERSED TURNED DOWN TO 1 MG/HR AND PRECEDEX TURNED TO 0.6MCG/KG/HR. AT 2300, PRECEDEX TURNED UP TO 1MCG/KG/HR. PT TOLERATING WELL
[2021-10-16] VITALS (24 sets, daily range): BP systolic 85–122; BP diastolic 33–79
[2021-10-16 05:48] LABS: ABSOLUTE LYMPHOCYTES 1.2 thou/uL (0.8-5.3); ABSOLUTE MONOCYTES 0.5 thou/uL (0.0-1.2); ABSOLUTE NEUTROPHILS 6.9 thou/uL (1.6-8.1); BASOPHILS 0.6 %; EOSINOPHILS 0.2 %; HEMATOCRIT 31.4 % (42.0-52.0); HEMOGLOBIN 10.5 gm/dL (14.0-18.0); LYMPHOCYTES 13.4 %; MCH 30.1 pg (26.0-34.0); MCHC 33.5 g/dL (28.0-37.0); MCV 89.9 fL (80.0-100.0); MPV 8.4 fl. (7.2-11.1); NUCLEATED RBCS 0 /100WBC; POLYS 79.8 %; RBC 3.49 mil/uL (4.50-6.00); RDW-CV 13.8 % (10.5-14.5); WBC 8.6 thou/uL (4.0-11.0)
[2021-10-16 05:51] LABS: CALCIUM 8.8 mg/dL (8.5-10.1); POTASSIUM 3.9 mmol/L (3.5-5.1)
--- NOTE | 2021-10-16 16:12 | NUR ---
CM FOLLOWUP PT NOT MED CLEAR AND ON A VENT. CM TO FOLLOW FOR FUTURE DC NEEDS.
--- NOTE | 2021-10-16 19:41 | NUR ---
Pt at times will frown, wave his hands, and/or motion to staff with finger to "come here." Other times he is limp and appears thoroughly sedated. Precedex gtt @ 1.5 mcg/kg/hr, and Versed gtt @ 6 mg/hr, which are unchanged from previous shift. EMILIANO performed per surgeon; no stool or obstruction detected. Fleets enema administered per order, but expelled right after it was administered as pt coughed. Mag citrate given early afternoon per order. At 1800, moderate amount of gelatinous looking "stool" found when turning patient. Cleaned and repositioned. Dr. Beard had indicated that he wanted to have wean trial done this evening, but as it was getting late he said we would try tomorrow. Pt still NPO except for meds via OG. Will continue to monitor.
[2021-10-17] VITALS (14 sets, daily range): BP systolic 83–110; BP diastolic 47–72
--- NOTE | 2021-10-17 04:01 | NUR ---
PT WAKING UP AND TRYING TO GET TO TUBE. VERSED INCREASED TO 8MG/HR
[2021-10-17 05:31] LABS: ABSOLUTE BASOPHILS 0.1 thou/uL (0.0-0.2); ABSOLUTE EOSINOPHILS 0.1 thou/uL (0.0-0.7); ABSOLUTE LYMPHOCYTES 0.9 thou/uL (0.8-5.3); ABSOLUTE MONOCYTES 0.3 thou/uL (0.0-1.2); ABSOLUTE NEUTROPHILS 5.2 thou/uL (1.6-8.1); BASOPHILS 0.9 %; EOSINOPHILS 1.1 %; HEMATOCRIT 30.9 % (42.0-52.0); HEMOGLOBIN 10.5 gm/dL (14.0-18.0); LYMPHOCYTES 13.7 %; MCH 30.5 pg (26.0-34.0); MCHC 33.8 g/dL (28.0-37.0); MCV 90.2 fL (80.0-100.0); MONOCYTES 4.6 %; MPV 9.3 fl. (7.2-11.1); NUCLEATED RBCS 0 /100WBC; PLATELET COUNT* 181 thou/uL (150-400); POLYS 79.7 %; RBC 3.42 mil/uL (4.50-6.00); RDW-CV 14.3 % (10.5-14.5); WBC 6.5 thou/uL (4.0-11.0)
[2021-10-17 05:36] LABS: APTT 31.9 Seconds (25.0-31.3); INR 2.3; PROTIME 23.2 Seconds (9.20-11.50)
[2021-10-17 05:38] LABS: ALBUMIN 2.8 g/dL (3.4-5.0); CALCIUM 8.7 mg/dL (8.5-10.1); CREATININE 0.9 mg/dL (0.6-1.3); MAGNESIUM 2.6 mg/dL (1.8-2.4); POTASSIUM 3.6 mmol/L (3.5-5.1); TOTAL BILIRUBIN 0.8 mg/dL (<0.1-1.0); TOTAL PROTEIN 6.8 g/dL (6.4-8.2)
[2021-10-17 05:55] LABS: PHOSPHORUS* 3.6 mg/dL (2.5-4.9)
[2021-10-17 08:35] LABS: PLATELET COUNT* 220 thou/uL (150-400)
[2021-10-17 13:49] LABS: BE 0.6 mmol/L (-2 to +3); PCO2 35.9 mmHg (35.0-45.0); pH 7.449 (7.340-7.450)
[2021-10-17 13:53] LABS: PO2 135.4 mmHg (75.0-100.0)
--- NOTE | 2021-10-17 19:00 | NUR ---
Pt extubated this afternoon, tolerated well. O2 @ 3L per NC; O2 sats mid-90s. BP upper 70s-80s/40s-50s this evening. Precedex titrated off, but BP remains soft. Will page physician. Pt has had 4 loose BMs today, including large one just before shift change. Pt frequently asking for H2O and also states he is hungry. Per surgery, pt may have diet as tolerated if passes swallow eval. Pt has had several sips of H2O, coughs at times afterwards. Will limit to sips for time being. Pt is seemingly incessant with queries/demainds for water. Alert & oriented X3, but not to situation. Will continue to monitor.
[2021-10-18 01:09] VITALS: BP 90/44
[2021-10-18 04:25] VITALS: BP 96/53
[2021-10-18 08:17] VITALS: BP 93/57
[2021-10-18 12:02] VITALS: BP 113/49
[2021-10-18 15:54] VITALS: BP 97/60
[2021-10-18 20:00] VITALS: BP 101/63
[2021-10-19] VITALS: BP 130/79
[2021-10-19 04:27] LABS: ABSOLUTE EOSINOPHILS 0.2 thou/uL (0.0-0.7); ABSOLUTE LYMPHOCYTES 0.9 thou/uL (0.8-5.3); ABSOLUTE MONOCYTES 0.4 thou/uL (0.0-1.2); ABSOLUTE NEUTROPHILS 5.2 thou/uL (1.6-8.1); BASOPHILS 0.5 %; EOSINOPHILS 2.5 %; HEMATOCRIT 28.8 % (42.0-52.0); HEMOGLOBIN 9.7 gm/dL (14.0-18.0); LYMPHOCYTES 13.8 %; MCH 30.4 pg (26.0-34.0); MCHC 33.6 g/dL (28.0-37.0); MCV 90.4 fL (80.0-100.0); MONOCYTES 5.3 %; MPV 9.6 fl. (7.2-11.1); NUCLEATED RBCS 0 /100WBC; PLATELET COUNT* 171 thou/uL (150-400); POLYS 77.9 %; RBC 3.19 mil/uL (4.50-6.00); RDW-CV 14.5 % (10.5-14.5); WBC 6.7 thou/uL (4.0-11.0)
[2021-10-19 04:40] LABS: PHOSPHORUS* 2.6 mg/dL (2.5-4.9)
[2021-10-19 04:41] LABS: APTT 27.3 Seconds (25.0-31.3); INR 1.5; PROTIME 15.3 Seconds (9.20-11.50)
[2021-10-19 04:59] LABS: ALBUMIN 2.7 g/dL (3.4-5.0); CALCIUM 8.4 mg/dL (8.5-10.1); CREATININE 0.7 mg/dL (0.6-1.3); MAGNESIUM 2.1 mg/dL (1.8-2.4); TOTAL BILIRUBIN 0.6 mg/dL (<0.1-1.0); TOTAL PROTEIN 6.1 g/dL (6.4-8.2)
[2021-10-19 05:09] LABS: POTASSIUM 2.8 mmol/L (3.5-5.1)
--- NOTE | 2021-10-19 07:10 | NUR ---
CHANGE OF SHIFT REPORT GIVEN PATIENT SEEN AT BESIDE, IN BED ASLEEP ASSUMED PATIENT CARE
[2021-10-19 08:00] VITALS: BP 112/63
[2021-10-19 12:00] VITALS: BP 105/73
--- NOTE | 2021-10-19 13:30 | NUR ---
CM FOLLOWUP PT NOT YET MED CLEAR, BUT PT OFF VENT AND ON 3L O2. PT PENDING ID CONSULT. PT WITH POTENTIAL TO GO TO REHAB AND WILL BE ASSESSED. CM TO FOLLOW.
[2021-10-19 16:00] VITALS: BP 153/86
[2021-10-19 20:00] VITALS: BP 125/69
[2021-10-20 00:33] VITALS: BP 124/73
[2021-10-20 04:37] VITALS: BP 152/63
[2021-10-20 04:46] LABS: ABSOLUTE EOSINOPHILS 0.3 thou/uL (0.0-0.7); ABSOLUTE MONOCYTES 0.4 thou/uL (0.0-1.2); ABSOLUTE NEUTROPHILS 5.8 thou/uL (1.6-8.1); BASOPHILS 0.6 %; EOSINOPHILS 4.2 %; HEMATOCRIT 31.6 % (42.0-52.0); HEMOGLOBIN 10.5 gm/dL (14.0-18.0); LYMPHOCYTES 13.5 %; MCH 30.3 pg (26.0-34.0); MCHC 33.3 g/dL (28.0-37.0); MCV 90.8 fL (80.0-100.0); MONOCYTES 5.7 %; MPV 9.3 fl. (7.2-11.1); NUCLEATED RBCS 0 /100WBC; PLATELET COUNT* 172 thou/uL (150-400); RBC 3.48 mil/uL (4.50-6.00); RDW-CV 14.7 % (10.5-14.5); WBC 7.6 thou/uL (4.0-11.0)
[2021-10-20 05:50] LABS: ALBUMIN 2.8 g/dL (3.4-5.0); CALCIUM 8.7 mg/dL (8.5-10.1); CREATININE 0.6 mg/dL (0.6-1.3); MAGNESIUM 1.9 mg/dL (1.8-2.4); TOTAL BILIRUBIN 0.6 mg/dL (<0.1-1.0); TOTAL PROTEIN 6.1 g/dL (6.4-8.2)
--- NOTE | 2021-10-20 06:09 | NUR ---
ASSUMED CARE OF PT AFETR REPORT AT 1930. PT A&OX2. ORIENTED TO SELF & PLACE. VSS. PHYSICAL ASSESSMENT COMPLETED AND CHARTED. PT ON RA. PT TRACING SR ON TELE. PT WITH ANA TO DEPENDENT DRAIN. PT DENIES PAIN. PT BALE TO SLEEP WELL ON BED. FALL PRECAUTIONS IN PLACE. CALL LIGHT WITHIN REACH.
[2021-10-20 08:00] VITALS: BP 113/74
[2021-10-20 12:00] VITALS: BP 98/73
--- NOTE | 2021-10-20 14:44 | NUR ---
CM FOLLOWUP PT NOT MED CLEAR. PT PENDING ANTIFUNGAL TREATMENT AND PT/OT EVALS FOR DC TO ARU. DC TO ARU MAY OCCUR EARLY TOMORROW, 10/21/21. CM TO FOLLOW.
--- NOTE | 2021-10-20 15:29 | NUR ---
The patient is alert. ABle to make most needs known. Denies SOB or CP. SR/ST on the monitor. Call light within reach. Cid intact and patent. Cid discharged. Fall precautions in place.
--- NOTE | 2021-10-20 15:41 | NUR ---
The patient is NPO after midnight for ALYCE procedure tomorrow.
[2021-10-20 20:00] VITALS: BP 109/71
[2021-10-21] VITALS (18 sets, daily range): BP systolic 87–124; BP diastolic 44–79
--- NOTE | 2021-10-21 06:03 | NUR ---
ASSUMED CARE OF PT AFTER REPORT AT 1930. PT A&OX2. VSS. PHYSICALA ASSESSMENT COMPLETED AND CHARTED. PT ON RA. PT TRACING SR ON TELE. PT UP WITH 1 ASSIST. PT DENIES ANY PAIN. INSTRUCTED ON NPO POST MIDNIGHT FOR ALYCE TODAY. COMMUNICATES UNDERSTANDING. FALL PRECAUTIONS IN PLACE. CALL LIGHT WITHIN REACH.
--- NOTE | 2021-10-21 13:08 | TEE ---
[place] [address] TRANSESOPHAGEAL ECHOCARDIOGRAM Name: PRATIK ROY Room: [address] IN [facility]#: [id number] Admission: 10/08/21 Attend Phys: Yareli Mcdermott, Discharge: Date of : 74 Date of Service: 10/21/21 1308 Report #: [id number] THIS REPORT FOR: cc: Ina Crespo Angela Jo RNP Blick, David R. MD [facility] ~ APPROVED REPORT Study performed: 10/21/2021 11:22:27 EXAM: Transesophageal Echocardiogram Patient Location: In-Patient Room #: 108 Status: routine BSA: 2.09 HR: 107 bpm BP: 108/77 mmHg Rhythm: NSR Other Information Study Quality: Good Indications Endocarditis fungemia Echo Enhancing Agent Indication: Rule out Shunt Agent(s) / Amount(s) Used: Agitated Saline 20 cc Comments: 2 bubble studies Procedure After obtaining informed consent, patient underwent transesophageal echo in the [employer]. Type of Sedation : Conscious Sedation Sedation was administered by Tri Castillo. Sedation start time: 1150 Case end Time: 1205 Sedation was achieved intravenously with: Versed (5) Fentanyl (50) Transesophageal probe was inserted and advanced into esophagus without difficulty by Blayne Raphael MD, [facility]. Echo enhancement indication: R/O Septal defect. Echo enhancement agent administered: Agitated Saline The [place]YCE [place] [address] TRANSESOPHAGEAL ECHOCARDIOGRAM Name: PRATIK ROY Room: [address] IN ..#: [id number] Admission: 10/08/21 Attend Phys: Yareli Mcdermott, Discharge: Date of : 74 Date of Service: 10/21/21 1308 Report #: [id number] Throughout the procedure, the blood pressure, pulse oximetry, cardiac rhythm, and rate were monitored. The patient tolerated the procedure without adverse effects. Recovery from conscious sedation was uneventful and vital signs were stable. Left Ventricle The left ventricle is normal size. There is normal LV segmental wall motion. There is normal left ventricular wall thickness. Left ventricular systolic function is normal. The left ventricular ejection fraction is within the normal range. LVEF is 60-65%. Right Ventricle The right ventricle is normal size. The right ventricular systolic function is normal. Atria The left atrium size is normal. No thrombus is visualized in the left atrium or appendage. small right to left shnt noted by bubble study consistemt with a PFO or a small secundum ASD The right atrium size is normal. Aortic Valve The aortic valve is normal in structure. No aortic regurgitation is present. There is no aortic valvular vegetation. There is no aortic valvular stenosis. Mitral Valve The mitral valve is normal in structure. Trace mitral regurgitation. There is no evidence of mitral valve vegetations. No evidence of mitral valve stenosis. Tricuspid Valve The tricuspid valve is normal in structure. There is no tricuspid valve regurgitation noted. There is no tricuspid valve vegetations. Pulmonic Valve Pulmonic valve is not well visualized. There is no pulmonic valvular regurgitation. Great Vessels The aortic root is normal in size. Pericardium There is [place] [address] TRANSESOPHAGEAL ECHOCARDIOGRAM Name: PRATIK ROY Room: [address] IN ..#: [id number] Admission: 10/08/21 Attend Phys: Yareli Mcdermott, Discharge: Date of : 74 Date of Service: 10/21/21 130 Report #: [id number] <Conclusion> LVEF is 60-65%. Trace mitral regurgitation. small right to left shnt noted by bubble study consistemt with a PFO or a small secundum ASD There is no aortic valvular vegetation. There is no evidence of mitral valve vegetations. <ELECTRONICALLY SIGNED> By: Blayne Raphael MD, [facility] 10/21/218 07 1308 Blayne Raphael MD, FACC /INF
--- NOTE | 2021-10-21 18:12 | NUR ---
CM FOLLOWUP PT PENDING ALYCE AND CULTURES TO DETERMINE MEDICATION AT DC. IF IV MEDICATION NEEDED, PT MAY DC TO ARU. IF PT CAN DC WITH ORAL MEDICATION, PT CAN DC BACK TO NURSING HOME THEY CAN PROVIDE 24/7 NURSING, PT, AND OT SUPPORT. CM TO FOLLOW.
[2021-10-22] VITALS (7 sets, daily range): BP systolic 82–122; BP diastolic 50–84
[2021-10-22 03:55] LABS: HEMATOCRIT 32.8 % (42.0-52.0); HEMOGLOBIN 10.9 gm/dL (14.0-18.0); MCH 30.3 pg (26.0-34.0); MCHC 33.1 g/dL (28.0-37.0); MCV 91.4 fL (80.0-100.0); MPV 8.9 fl. (7.2-11.1); NUCLEATED RBCS 0 /100WBC; PLATELET COUNT* 210 thou/uL (150-400); RBC 3.59 mil/uL (4.50-6.00); RDW-CV 15.4 % (10.5-14.5); WBC 7.4 thou/uL (4.0-11.0)
[2021-10-22 04:17] LABS: ALBUMIN 2.8 g/dL (3.4-5.0); CREATININE 0.7 mg/dL (0.6-1.3); POTASSIUM 3.3 mmol/L (3.5-5.1); TOTAL BILIRUBIN 0.4 mg/dL (<0.1-1.0); TOTAL PROTEIN 6.1 g/dL (6.4-8.2)
[2021-10-22 06:24] LABS: ABSOLUTE EOSINOPHILS 0.3 thou/uL (0.0-0.7); ABSOLUTE LYMPHOCYTES 0.5 thou/uL (0.8-5.3); ABSOLUTE MONOCYTES 0.4 thou/uL (0.0-1.2); ABSOLUTE NEUTROPHILS 6.2 thou/uL (1.6-8.1)
[2021-10-22 06:25] LABS: PLATELET ESTIMATE ADEQUATE
[2021-10-22] MEDS ORDERED: DIFLUCAN200 MG PO (11:47)
--- NOTE | 2021-10-22 15:10 | NUR ---
CM FOLLOWUP PT MED CLEAR AND WILL DC BACK TO [facility] ([facility] - [phone]). [facility] TO PROVIDE 24/7 PT,OT, NURSING. [facility] TO PICK PT UP FROM [facility] TODAY (10/22/21) AT 4:30PM.
[2021-10-23 05:00] VITALS: BP 107/71
[2021-10-23 08:00] VITALS: BP 100/68
--- NOTE | 2021-10-23 11:20 | NUR ---
the pateint is alert. sr on the monitor. call light within reach. fall precautions in place. denies sob/cp.
[2021-10-23 12:00] VITALS: BP 111/66
[2021-10-23 16:00] VITALS: BP 92/61
--- NOTE | 2021-10-23 17:10 | NUR ---
CM FOLLOWUP PT PENDING AVAILABLE REHAB BED. PT ANTICIPATED TO TRANSFER TO REHAB UNIT TUESDAY OR TUESDAY OF NEXT WEEK. CM TO FOLLOW.
[2021-10-23 21:30] VITALS: BP 86/52
[2021-10-24 00:22] VITALS: BP 98/66
--- NOTE | 2021-10-24 05:21 | NUR ---
PT AO X2 PERSON AND PLACE. HE IS TALKATIVE AND PLEASANT. HE IS ON ROOM AIR SATTING APPROPRIATELY. PT IS AWAITING LTAC TX FOR ONGIONG ANTIBIOTIC TX WHICH WILL TAKE PLACE WITH 2 NEG BLOOD CULTURES. PT HAS BEEN VERY ACTIVE THIS PM [place] [facility] [place] HE WAS UNABLE TO SLEEP MOST OF THE NIGHT. HE IS IMPULSIVE AND CALLS OUT FREQUENTLY BUT IS EASILY REDIRECTED. PT IS AWAKE ALREADY AND AND IN THE CHAIR. CHAIR ALARM ON AND CALL LIGHT IN REACH FOR PT SAFETY.
[2021-10-24 05:45] LABS: ABSOLUTE BASOPHILS 0.1 thou/uL (0.0-0.2); ABSOLUTE LYMPHOCYTES 1.4 thou/uL (0.8-5.3); ABSOLUTE NEUTROPHILS 4.3 thou/uL (1.6-8.1); BASOPHILS 0.9 %; HEMATOCRIT 33.9 % (42.0-52.0); NUCLEATED RBCS 0 /100WBC
[2021-10-24 05:48] LABS: ABSOLUTE EOSINOPHILS 0.3 thou/uL (0.0-0.7); ABSOLUTE MONOCYTES 0.5 thou/uL (0.0-1.2); HEMOGLOBIN 11.3 gm/dL (14.0-18.0); LYMPHOCYTES 21.8 %; MCH 30.8 pg (26.0-34.0); MCHC 33.3 g/dL (28.0-37.0); MCV 92.6 fL (80.0-100.0); MONOCYTES 7.3 %; MPV 8.4 fl. (7.2-11.1); PLATELET COUNT* 254 thou/uL (150-400); RBC 3.66 mil/uL (4.50-6.00); RDW-CV 16.1 % (10.5-14.5); WBC 6.5 thou/uL (4.0-11.0)
[2021-10-24 06:17] LABS: ALBUMIN 3.1 g/dL (3.4-5.0); CALCIUM 9.4 mg/dL (8.5-10.1); CREATININE 0.7 mg/dL (0.6-1.3); POTASSIUM 3.2 mmol/L (3.5-5.1); TOTAL BILIRUBIN 0.5 mg/dL (<0.1-1.0); TOTAL PROTEIN 6.4 g/dL (6.4-8.2)
[2021-10-24 08:00] VITALS: BP 98/68
[2021-10-24 12:00] VITALS: BP 94/54
[2021-10-24 16:00] VITALS: BP 102/62
--- NOTE | 2021-10-24 16:11 | NUR ---
TOOK CARE OF PATIENT FROM 0700 TO PRESENT. PATIENT IS VERY IMPULSIVE AND HAS BED AND CHAIR ALARMS ON. PATIENT IS ON ROOM AIR AND BREATH SOUNDS ARE DIMINISHED. PATIENT IS INCONTINENT OF URINE AT TIMES. PATIENT CONTINUES TO GET BLOOD SUGARS AC AND HS. NOT REQUIRING INSULIN AT THIS TIME. PATIENT WILL MOVE TO ROOM 212 SOON. WAITING RN TO CALL ME BACK.
--- NOTE | 2021-10-24 16:29 | NUR ---
REPORT TO CHELITA. PATIENT WILL GO TO ROOM 212 VIA BED. PATIENTS HISTORY OF THIS HOSPITAL STAY WAS REVIEWED. PATIENT WILL GO SOON TO ROOM. ROOM AIR. ALL BELONGINGS WITH PATIENT.
--- NOTE | 2021-10-24 16:45 | NUR ---
PATIENT TRANSFERRED FROM [facility] TO 212 TELEPHONE REPORT GIVEN PATIENT TO VIA BED DENIES DISCOMFORT\ORIENTED TO CALL LIGHT BED ALARM SET
[2021-10-24 20:00] VITALS: BP 122/69
[2021-10-25 00:42] VITALS: BP 111/67
[2021-10-25 04:00] VITALS: BP 100/71
--- NOTE | 2021-10-25 04:04 | NUR ---
ASSUMED CARE OF PT AT 1900. PT IS ALERT AND ORIENTED. VSS. PERRLA. NO COMPLAINTS OF PAIN. PT IS ON ROOM AIR. PT IS IN SINUS RYTHM ON THE TELEMETRY. PT IS RESTING COMFORTABLY IN BED. RESPIRATIONS ARE EVEN AND NONLABORED. WILL CONTINUE TO MONITOR PT.
--- NOTE | 2021-10-25 07:25 | NUR ---
CHANGE OF SHIFT REPORT GIVEN PATIENT SEEN AT BEDSIDE, IN BED ASLEEP ASSUMED PATIENT CARE
[2021-10-25 08:00] VITALS: BP 106/70
[2021-10-25 11:48] VITALS: BP 92/64
[2021-10-25 15:25] VITALS: BP 109/63
[2021-10-25 19:10] VITALS: BP 103/69
--- NOTE | 2021-10-26 04:35 | NUR ---
ASSUMED CARE OF PT AT 1900. PT IS ALERT AND ORIENTED. VSS. PERRLA. NO COMPLAINTS OF PAIN. PT IS IN SINUS RYTHM ON THE TELEMETRY. PT IS RESTING COMFORTABLY IN BED. RESPIRATIONS ARE EVEN AND NONLABORED. WILL CONTINUE TO MONITOR PT.
[2021-10-26 08:00] VITALS: BP 97/65
[2021-10-26 12:00] VITALS: BP 98/62
--- NOTE | 2021-10-26 14:58 | NUR ---
CM FOLLOWUP PT MED CLEAR AND PENDING TRANSFER TO [facility] WHEN A BED IS AVAILABLE. CM TO FOLLOW.
[2021-10-26 20:00] VITALS: BP 111/75
[2021-10-27] VITALS: BP 96/65
--- NOTE | 2021-10-27 03:32 | NUR ---
AWAKE MOST OF NIGHT. ASSISTED TO BR WITH WALKER AND SBA. ASKING TO GET DRESSED AFTER GETTING UP FOR BR. ABLE TO VOID IN BR OR URINAL WITHOUT DIFFICULTY. TELEMETRY ON SHOWING SR. DRINKING LG AMT OF URINE.
[2021-10-27 04:59] VITALS: BP 123/66
[2021-10-27 08:00] VITALS: BP 107/66
--- NOTE | 2021-10-27 10:03 | EKG ---
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1970 Requested By: Vicente Estrada Order Number: [id number] Maria Elena MD: Dayton Suggs Measurements Intervals [place] Rate: 99 P: 5 NE: 157 QRS: 32 QRSD: 88 T: 28 QT: 344 QTc: 442 Interpretive Statements Sinus rhythm Low voltage, precordial leads RSR' in V1 or V2, right VCD or RVH Compared to ECG 10/08/2021 10:58:34 Low QRS voltage now present Sinus tachycardia no longer present Electronically Signed On 10-27-2021 9:06:09 SHANK BREAKER by Dayton Suggs [email or web address] <ELECTRONICALLY SIGNED> By: Dayton Suggs MD, FACC 10/27/21905 51 51 Dayton Suggs MD, FAC /EPI
[2021-10-27 12:00] VITALS: BP 102/62
--- NOTE | 2021-10-27 14:24 | NUR ---
PLAN OF CARE: PLAN FOR THE PT TO POSSIBLY D/C TO INPT ACUTE REHAB UNIT HERE TODAY PENDING ACCEPTANCE. CM WILL REMAIN AVAILABLE TO ASSIST AND FOLLOW NEEDED.
[2021-10-27 16:08] VITALS: BP 95/51
[2021-10-27 20:25] VITALS: BP 116/75
[2021-10-28 01:15] VITALS: BP 114/72
[2021-10-28 04:00] VITALS: BP 101/65
[2021-10-28 08:48] VITALS: BP 102/64
--- NOTE | 2021-10-28 11:28 | NUR ---
REFERRAL FAXED TO [facility] FOR ARU. AWAITING APPROVAL CM TO CONTINUE TO FOLLOW FOR SAFE D/C PLANNING.
[2021-10-28 12:00] VITALS: BP 107/65
--- NOTE | 2021-10-28 14:36 | NUR ---
FOLLOW UP- SPOKE TO ANDREY FROM [facility], PT. CLINICALLY ACCEPTED.. PT. WILL D/C TOMORROW MORNING, DUE TO BED AVAILABILITY JOSÉ FROM [facility] WILL CALL TO ARRANGE TRANSPORTATION. CM TO FOLLOW FOR SAFE D/C PLANNING.
[2021-10-28 16:00] VITALS: BP 93/53
--- NOTE | 2021-10-28 16:11 | NUR ---
per jaki shankar/vinay, pt is transferring to aru today. cm informed pt and cm/friend, tanna, they agreeable to plan. cm attempted to contact pt's friend and [facility] [[email or web address] administartor, Peter, but got a vm for each so did not leave message d/t sensative info.
--- NOTE | 2021-10-28 19:08 | NUR ---
Report called to [facility], on Rehab. Pt about to be transferred up to Rehab, room 322, per WC. Monitor dc'd. IV to RAC still in place for final dose of Micofungin, to be administered tomorrow morning.
--- NOTE | 2021-11-06 11:37 | CON ---
[address] [address] CONSULTATION Name: KIRILLPRATIK Cohen Room: [address] IN .R.#: [id number] Admission: 10/08/21 Attend Phys: Yareli Mcdermott MD Discharge: 10/28/21 Date of : 74 Report #: [id number] THIS REPORT FOR: cc: Ina Crespo Angela Jo RNP Khosla, Parveen K. MD ~ DATE OF CONSULTATION: 10/14/2021 HISTORY OF PRESENT ILLNESS: This is a 51-year-old male patient who was evaluated by me for the possibility of seizure. I reviewed this patient's records. The patient is completely unresponsive. He is not able to provide any history at all. I talked to the nurses and they indicated that he is on a significant amount of sedation. Their plan is to take the patient off of sedation if possible and try to extubate him if possible. They have not given him any sedation vacation, but they are planning to do that. REVIEW OF SYSTEMS: Indicated that he was admitted with shortness of breath. It started 2 weeks ago. The best I can tell, he was not vaccinated for COVID. He is being treated for COVID at the moment. He is being followed by multiple physicians. He apparently has a history of anxiety, hallucination, paranoia, schizoaffective disorder. For some reason, he was on multiple medications at home. I cannot tell why he was on those medications and medication, which has been listed is Topamax 200 mg p.o. b.i.d., which is a pretty high dosage. He has been on all kind of sedation when he is here. We will try to reach some family to see if we can get some history on this patient. As far as history of seizure is concern, the only thing I can tell from the nurses is that the nurse, who is taking care of this patient, did not see this patient when he was having that seizure, but other nurse was there and she noticed tachycardia and when she went there, he was blinking his eyes. One of the record indicated that he was also on propofol at one time. He is also on phenobarbital one time. It is a small dose of 30 mg p.o. at bedtime. This is all the 14-point review of review of system, I can get. This is mainly from the record and as I said we will try to reach some family if we can. He is having some abdominal problems for which he is also being managed. PAST MEDICAL HISTORY: Appeared to be psychiatric problems and I do not know if he ever had a seizure before. FAMILY HISTORY: Unavailable. SOCIAL HISTORY: Also unavailable on this patient, but we will try to reach the family to see if we can get any. He apparently has a history of seizure disorder. From the record whatever I can tell, this patient has no [place] [address] CONSULTATION Name: PRATIK ROY Room: [address] IN [facility]#: [id number] Admission: 10/08/21 Attend Phys: Yareli Mcdermott MD Discharge: 10/28/21 Date of : 74 Report #: [id number] PHYSICAL EXAMINATION: The patient's examination indicate that the patient is not responsive. He did not respond to the pain or any other stimuli. I cannot tell about the pupils in this patient. He has no reflexes. The best I can tell, he does not have any meningeal sign. He is intubated, he is a moderately-built individual. His blood pressure is 126/75, respirations 22, pulse 70, temperature 99.2. He had multiple testing, but there is no testing, which is there for me to review for the CONSTRUCTION HELPER. IMPRESSION: Question of seizure in this patient. He is already on a pretty high dosages of Topamax. Seizures will be unusual in these circumstances. I suspect the Topamax just because of psychiatric issues, but I will try to reach the family. I will get a CAT scan and EEG and until that shows any abnormality, neurologically I will not change his medication because he is already on therapeutic dosages of Topamax. We will also try to discuss the patient with the hospitalist if we can reach the family. <ELECTRONICALLY SIGNED> By: Tony Byrne MD 11/06/21 1137 1142 [id number] Byrne MD /nt
--- NOTE | 2021-11-06 11:37 | EEG ---
[address] [address] EEG STUDY REPORT Name: PRATIK ROY Room: [address] IN M.R.#: [id number] Admission: 10/08/21 Attend Phys: Yareli Mcdermott MD Discharge: 10/28/21 Date of : 74 Report #: [id number] THIS REPORT FOR: cc: Ina Crespo Angela Jo RNP Khosla, Parveen K. MD ~ DATE OF SERVICE: 10/14/2021 This patient is being evaluated for altered mental status. EEG was done by placing the electrode by standard 10-20 system of electrode placement. Both referential and sequential montages were used for recording. Background activity is very disorganized and poorly formed. There is about 4-5 Hz and 30 microvolt. Photic stimulation is unremarkable. The patient's EEG demonstrated 1 electrographic seizure. IMPRESSION: Severely abnormal EEG, which will be consistent with severe encephalopathy. However, similar finding can occur with other etiologies including effect of psychotropic medication. The patient's EEG also demonstrate an electrographic seizure. Thank you very much for this referral. <ELECTRONICALLY SIGNED> By: Tony Byrne MD 11/06/21 1137 1759 [id number] Byrne MD /nt
--- NOTE | 2021-11-06 11:37 | EEG ---
[address] [address] EEG STUDY REPORT Name: PRATIK ROY Room: [address] IN M.R.#: [id number] Admission: 10/08/21 Attend Phys: Yareli Mcdermott MD Discharge: 10/28/21 Date of : 74 Report #: [id number] THIS REPORT FOR: cc: Ina Crespo Angela Jo RNP Khosla, Parveen K. MD ~ DATE OF SERVICE: 10/20/2021 This patient's repeat EEG is done to compare with the last EEG. EEG demonstrates background activity of about 8 Hz and 15 microvolts. Photic stimulation is unremarkable. The patient went to sleep and that is associated with bilateral slowing and vertex sharp waves. Throughout the record, no active epileptiform activity was noticed. Some sporadic sharper activity may be present. IMPRESSION: This is an abnormal EEG because it is disorganized and poorly formed that is a nonspecific abnormality, which can occur with encephalopathy, effect of psychotropic medication, dementia, etc. The electrographic seizure this patient had last time has resolved. <ELECTRONICALLY SIGNED> By: Tony Byrne MD 11/06/21 1137 1102 [id number] Byrne MD /nt
== END 2021-10-28 19:10 | DRG 207 ==
LOC: M.ERS 10:37 → M.TBA-ER 11:43 → M.ICU 11:43 → M.2W 11:43 → M.ICU 12:57 → M.ORTHSURG 10-11 16:10 → M.2W 10-24 16:50
PROVIDERS: Emergency Medicine; Family Medicine; Internal Medicine; Internal Medicine Critical Care Medicine; Nurse Practitioner Family; Student in an Organized Health Care Education/Training Program; ADMIT Internal Medicine; ATTEND Internal Medicine
PROC: 0BH17EZ Insertion of Endotracheal Airway into Trachea, Via Natural or Artificial Opening (ICD-10-PCS; principal; 2021-10-08)
PROC: XW033H5 Introduction of Tocilizumab into Peripheral Vein, Percutaneous Approach, New Technology Group 5 (ICD-10-PCS; principal; 2021-10-08)
PROC: 5A1955Z Respiratory Ventilation, Greater than 96 Consecutive Hours (ICD-10-PCS; principal; 2021-10-08)
PROC: XW033E5 Introduction of Remdesivir Anti-infective into Peripheral Vein, Percutaneous Approach, New Technology Group 5 (ICD-10-PCS; principal; 2021-10-08)
PROC: 5A0935A Assistance with Respiratory Ventilation, Less than 24 Consecutive Hours, High Flow/Velocity Cannula (ICD-10-PCS; 2021-10-17)
PROC: 05HC33Z Insertion of Infusion Device into Left Basilic Vein, Percutaneous Approach (ICD-10-PCS; 2021-10-19)
PROC: B24BZZ4 Ultrasonography of Heart with Aorta, Transesophageal (ICD-10-PCS; 2021-10-21)
DX: U07.1 COVID-19 (principal); J15.6 Pneumonia due to other Gram-negative bacteria; J80 Acute respiratory distress syndrome; R65.11 Systemic inflammatory response syndrome (SIRS) of non-infectious origin with acute organ dysfunction; J12.82 Pneumonia due to coronavirus disease 2019; E87.1 Hypo-osmolality and hyponatremia; B49 Unspecified mycosis; E46 Unspecified protein-calorie malnutrition; I25.10 Atherosclerotic heart disease of native coronary artery without angina pectoris; F41.9 Anxiety disorder, unspecified; E87.6 Hypokalemia; E87.70 Fluid overload, unspecified; R73.9 Hyperglycemia, unspecified; D64.9 Anemia, unspecified; R74.01 Elevation of levels of liver transaminase levels; F25.9 Schizoaffective disorder, unspecified; E66.9 Obesity, unspecified; G40.909 Epilepsy, unspecified, not intractable, without status epilepticus; R31.9 Hematuria, unspecified; B37.9 Candidiasis, unspecified; Z68.35 Body mass index [BMI] 35.0-35.9, adult; Z88.8 Allergy status to other drugs, medicaments and biological substances

== ENCOUNTER 2021-10-28 16:17 | Inpatient (IN) | payer MEDICARE, MEDICAID ==
[~2021-10-28] VITALS: Ht 167.6 cm; Wt 100.4 kg
[~2021-10-28 16:17] MED LIST changes: +DIFLUCAN200 MG PO
[2021-10-28 20:00] VITALS: BP 104/67
--- NOTE | 2021-10-29 05:10 | NUR ---
PT ARRIVED ONTO UNIT AT 191. ALERT AND ORIENTED. PLEASANT. POST COVID. CAN BE IMPULSIVE. SOME NON PRODUCTIVE COUGHING ESPECIALLY WITH AMBULATION. MIN ASSIST WITH GAIT BELT AND WALKER. UP TO BATHROOM OR USED URINAL. SLEPT LITTLE AND WAS AWAKE MOST OF THE NIGHT. ADMISSION ASSESSMENT COMPLETED. CALL LIGHT IN REACH AND BED ALARM ON.
[2021-10-29 07:30] VITALS: BP 108/66
[2021-10-29 07:39] LABS: HEMATOCRIT 37.4 % (42.0-52.0); HEMOGLOBIN 12.3 gm/dL (14.0-18.0); MPV 7.9 fl. (7.2-11.1); RBC 3.98 mil/uL (4.50-6.00); RDW-CV 18.3 % (10.5-14.5); WBC 7.9 thou/uL (4.0-11.0)
[2021-10-29 07:58] LABS: ALBUMIN 3.6 g/dL (3.4-5.0); CALCIUM 9.9 mg/dL (8.5-10.1); CREATININE 0.7 mg/dL (0.6-1.3); POTASSIUM 3.4 mmol/L (3.5-5.1); TOTAL BILIRUBIN 0.4 mg/dL (<0.1-1.0); TOTAL PROTEIN 6.8 g/dL (6.4-8.2)
--- NOTE | 2021-10-29 09:30 | NUR ---
Nutrition: Pt admitted to rehab for post COVID debility. RD has been following pt on other units nad during his intubation. He was extubated 10/17. Regular diet is ordered. Wt is stable, 221#. Labs: alb 3.6, prealb 48.1. H/o schizo, CAD, OBE. Meds: folic acid, fish oil, statin. Pt is at mild nutrition risk at this time.
[2021-10-29 19:52] VITALS: BP 98/64
--- NOTE | 2021-10-30 05:20 | NUR ---
ASSUMED PT CARE AT 1930. PT ALERT AND ORIENTED X4, POLITE AND COOPERATIVE WITH CARES. POST COVID, PT HAS NON PRODUCTIVE COUGH. UP WITH MIN ASSIST GAIT BELT AND WALKER TO BATHROOM TO VOID. STOOL X1 THIS SHIFT. ALSO USED URINAL OVERNIGHT. PRN TYLENOL ONCE AT 0200 FOR HEADACHE. PT SLEPT OFF AND ON. CALL LIGHT IN REACH, BED ALARM ON FOR SAFETY. HOURLY ROUNDING IN PROGRESS, WILL CONTINUE TO MONITOR.
[2021-10-30 07:43] VITALS: BP 111/71
[2021-10-30 11:38] LABS: CALCIUM 9.8 mg/dL (8.5-10.1); CREATININE 0.8 mg/dL (0.6-1.3)
[2021-10-30 11:41] LABS: MAGNESIUM 1.8 mg/dL (1.8-2.4); PHOSPHORUS* 4.1 mg/dL (2.5-4.9)
[2021-10-30 20:20] VITALS: BP 104/60
--- NOTE | 2021-10-31 05:24 | NUR ---
ASSUMED CARE AT 1930. PATIENT RESTED IN BED THROUGH SHIFT. SLEPT MUCH OF NIGHT. TURNS SELF. VOIDS PER URINAL, LARGE AMOUNTS OF LIGHT YELLOW URINE. ALSO CONSUMING MORE THAN 1L SINCE THIS NURSE GAVE MEDS AT HS. DENIES FEELING LIKE SEIZURE IS PENDING. BM PER TOILET THIS SHIFT. UP WITH GAIT BELT, WALKER, MIN ASSIST. TAKES PILLS WHOLE ALL AT ONE TIME WITH WATER WITHOUT DIFF. JENNY LITE IN REACH. BED ALARM ON. HOURLY ROUNDS CONTINUE.
[2021-10-31 07:33] VITALS: BP 97/65
--- NOTE | 2021-10-31 16:30 | NUR ---
PATIENT COMPLETED THERAPIES THIS SHIFT ORDERED. UP WITH ASSISTANCE; GAIT BELT AND WALKER. C/O BUTTOCKS PAIN, NO WOUNDS NOTED. VOIDING PER TOILET AND URINAL. BM NOTED THIS SHIFT. IV RESTARTED TO RIGHT FA FOR SCHED ABX.
[2021-10-31 19:45] VITALS: BP 91/55
--- NOTE | 2021-11-01 05:26 | NUR ---
ASSUMED CARE AT 1915. ALERT AND ORIENTED. PLEASANT. COUGHING OFF AND ON THROUGHOUT THE NIGHT. MIN ASSIST WITH GAIT BELT AND WALKER. UP TO BATHROOM OR USED URINAL. SLEPT SOME AT BEGINNING OF NIGHT BUT THEN STAYED MOSTLY AWAKE. CALL LIGHT IN REACH AND BED ALARM ON.
[2021-11-01 07:46] LABS: ABSOLUTE EOSINOPHILS 0.1 thou/uL (0.0-0.7); ABSOLUTE MONOCYTES 0.4 thou/uL (0.0-1.2); ABSOLUTE NEUTROPHILS 3.9 thou/uL (1.6-8.1); BASOPHILS 0.5 %; EOSINOPHILS 2.6 %; HEMATOCRIT 37.9 % (42.0-52.0); HEMOGLOBIN 12.6 gm/dL (14.0-18.0); LYMPHOCYTES 18.9 %; MCH 31.2 pg (26.0-34.0); MCHC 33.4 g/dL (28.0-37.0); MCV 93.4 fL (80.0-100.0); MONOCYTES 7.2 %; NUCLEATED RBCS 0 /100WBC; PLATELET COUNT* 252 thou/uL (150-400); POLYS 70.8 %; RBC 4.06 mil/uL (4.50-6.00); RDW-CV 17.8 % (10.5-14.5); WBC 5.5 thou/uL (4.0-11.0)
[2021-11-01 07:50] VITALS: BP 115/71
[2021-11-01 08:01] LABS: ALBUMIN 3.7 g/dL (3.4-5.0); CALCIUM 9.7 mg/dL (8.5-10.1); CREATININE 0.7 mg/dL (0.6-1.3); POTASSIUM 3.6 mmol/L (3.5-5.1); TOTAL BILIRUBIN 0.5 mg/dL (<0.1-1.0); TOTAL PROTEIN 7.6 g/dL (6.4-8.2)
[2021-11-01 11:43] LABS: NT-PRO BRAIN NAT PEPTIDE 27 pg/mL (<300)
--- NOTE | 2021-11-01 13:16 | EKG ---
[place] [address] ELECTROCARDIOGRAM REPORT Name: PRATIK ROY Room: [address] ADM IN M.R.#: [id number] Admission: 10/28/21 Attend Phys: Wolf Cummings MD Discharge: Date of : 74 Date of Service: 11/01/21 1143 Report #: [id number] THIS REPORT FOR: //name// [facility] Test Date: 2021-11-01 Test Time: 11:43:03 Pat Name: PRATIK ROY Department: Room: [address] Gender: M Cooperative Education Director: MARIA DE JESUS : 1970 Requested By: Vicente Estrada Order Number: [id number] Maria Elena MD: Dayton Suggs Measurements Intervals [place] Rate: 98 P: 75 RI: 174 QRS: 45 QRSD: 95 T: 24 QT: 340 QTc: 435 Interpretive Statements Sinus rhythm Compared to ECG 10/26/2021 18:52:21 Right ventricular hypertrophy no longer present Electronically Signed On 11-01-2021 13:16:13 CLIENT SERVICES DIRECTOR by Dayton Suggs [email or web address] <ELECTRONICALLY SIGNED> By: Dayton Suggs MD, FAC 11/01/21 1316 1143 1143 Dayton Suggs MD, [facility] /EPI
--- NOTE | 2021-11-01 16:23 | NUR ---
PATIENT UP TO RECLINER THIS SHIFT, UP WITH ASSISTANCE WITH GAIT BELT AND WALKER. VOIDING LARGE AMOUNTS OF URINE PER URINAL AND TOILET. C/O CHEST PAIN TO DR. ODOM AND STUDENT. EKG WAS DONE AND NSR NOTED AND DR. ODOM AWARE. TROP AND BNP DRAWN AND WNL'S. PATIENT STATED HE WAS NO LONGER HAVING ANY CHEST PAIN THIS SHIFT AND DID NOT REQUIRE INTERVENTIONS. IV ABX INFUSED THIS AM, PER DR. ODOM STOP DATE 11/03. PRELIM BLOOD CULTURES NEGATIVE.
[2021-11-01 19:38] VITALS: BP 86/52
[2021-11-01 19:49] VITALS: BP 92/50
--- NOTE | 2021-11-02 05:36 | NUR ---
ASSUMED CARE AT 1930. PATIENT RESTED IN BED ALL SHIFT. SLEPT OFF AND ON. DRINKS AT LEAST 3 LITERS OF WATER THIS SHIFT WITH C/O THAT HIS MOUTH WAS DRY. PATIENT IS ON MEDICINES THAT LEAD TO DRY MOUTH. NO MORE C/O CHEST PAIN. COUGH LOGENCES USED PRN. BLOOD PRESSURE WAS 86/52 WITH DYNAMAP, THIS RN RECHECKED IT MANUALLY AND GOT 92/50. SALINE LOCK TO RT FOREARM INTACT. NO C/O PAIN. HAD BM PER TOILET. UP WITH GAIT BELT, WALKER. HOURLY ROUNDS CONTINUE. BED ALARM ON. CALL LITE IN REACH.
[2021-11-02 07:50] VITALS: BP 99/59
--- NOTE | 2021-11-02 16:13 | NUR ---
PATIENT COMPLETED THERAPIES THIS SHIFT ORDERED. UP WITH ASSISTANCE GAIT BELT AND WALKER. PATIENT STATED HE WANTED TO LAY DOWN THIS EVENING, PATIENT ONLY WANTED TO WEAR BRIEF. IV SL, SCHED ABX INFUSED. TOMORROW IS LAST DOSE OF ABX. PRN TYLENOL GIVEN FOR RIGHT HIP PAIN. LIDODERM PATCH ORDERED AND PLACED PER DR. PIMENTEL. BP MEDS HELD THIS AM FOR SOFT BP.
--- NOTE | 2021-11-02 16:34 | NUR ---
INITIAL ASSESSMENT: PATIENT ADMITTED TO THE [facility]UTE [facility]HAB UNIT ON 10/28/21 WITH A DIAGNOSIS OF DEBILITY POST COVID. PT A&O. PRIOR TO ADMIT PT RESIDED IN A SKILLED NURSING. PT INDEPENDENT WITH ADL'S AND MOBILITY PRIOR TO ADMIT. PT OWNS 0 DME. PT HAS 0 HX OF HH OR SNF. PLAN FOR PT TO RETURN TO HIS SKILLED NURSING AT D/C. CM ORIENTED THE PT TO THE [facility] AND PROCESSES, RESIDENT'S RIGHTS INFO, TEAM CONFRENCE, AND TO THE ROLE OF CM. CM WILL REMAIN AVAILABLE TO ASSIST AND FOLLOW NEEDED.
[2021-11-02 19:00] VITALS: BP 104/66
[2021-11-03 08:15] VITALS: BP 112/71
--- NOTE | 2021-11-03 16:12 | NUR ---
CM SPOKE TO THE PT TO DISCUSS ANY QUESTIONS OR CONCERNS THAT HE MAY HAVE FOR THIS WEEKS TEAM CONFRENNE MEETING. PT HAS NO QUESTIONS OR CONCERNS AT THIS TIME. CM WILL REMAIN AVAILABLE TO ASSIST AND FOLLOW NEEDED.
--- NOTE | 2021-11-03 17:55 | NUR ---
ALERT AND ORIENTED X4 WITH PERIODS OF FORGETFULNESS. UP WITH STAND BY ASSIST, GAIT BELT AND WALKER TO BATHROOM. HAS NONPRODUCTIVE COUGH AND RECEIVED COUGH DROPS AND COUGH SYRUP TODAY. CONTINUES ON IV MEDICATION WITH NO ADVERSE REACTIONS. CONTINENT OF BOWEL AND BLADDER. USES CALL LIGHT FOR ASSIST. TAKES PILLS WITHOUT DIFFICULTY. FALL PRECAUTIONS IN PLACE.
[2021-11-03 19:23] VITALS: BP 103/65
--- NOTE | 2021-11-03 20:00 | NUR ---
RESTING QUIETLY IN BED. SNACK PROVIDED. CALL LIGHT WITHIN REACH.
[2021-11-04 05:31] LABS: HEMATOCRIT 36.3 % (42.0-52.0); HEMOGLOBIN 12.3 gm/dL (14.0-18.0); MCH 31.1 pg (26.0-34.0); MCHC 33.8 g/dL (28.0-37.0); MCV 92.2 fL (80.0-100.0); MPV 7.8 fl. (7.2-11.1); RBC 3.94 mil/uL (4.50-6.00); RDW-CV 17.4 % (10.5-14.5); WBC 5.4 thou/uL (4.0-11.0)
[2021-11-04 05:37] LABS: CALCIUM 9.8 mg/dL (8.5-10.1); CREATININE 0.7 mg/dL (0.6-1.3); POTASSIUM 3.6 mmol/L (3.5-5.1)
--- NOTE | 2021-11-04 05:53 | NUR ---
RESTED ON/OFF. PERSISTANT NON PRODUCTIVE COUGHING FOR ABOUT THE FIRST 3 HOURS OF THE SHIFT THEN SUBSIDED. ON SCHEDULED COUGH MEDICINE. HOURLY ROUNDING IN PROGRESS.
[2021-11-04 07:26] VITALS: BP 107/70
--- NOTE | 2021-11-04 18:06 | NUR ---
AM ASSESSMENT AND VITAL SIGNS COMPLETED DOCUMENTED. PT HAS MET HIS DISCHARGE GOALS AND WILL BE DISCHARGED BACK TO HIS LONG-TERM SOON. PT IS NOW MODIFIED INDEPENDENT IN HIS ROOM. HOURLY ROUNDING CONTINUES.
[2021-11-04 19:00] VITALS: BP 101/64
--- NOTE | 2021-11-05 04:29 | NUR ---
ASSUMED PT CARE AT 1930. PT ALERT AND ORIENTED, POLITE AND COOPERAIVE WITH CARES. TAKES PILLS WHOLE WITHOUT DIFFICULTY. OCCASIONAL COUGH, TAKES SCHEDULED COUGH MEDICINE. WEARS PULLUP AND ALSO VOIDS PER URINAL. SLEPT MOST OF THE NIGHT. MOD I IN ROOM. USES CALL LIGHT APPROPRIATELY. PT TO DISCHARGE TO PRISON WHEN TRANSPORTATION IS ARRANGED. CALL LIGHT IN REACH. HOURLY ROUNDING IN PROGRESS, WILL CONTINUE TO MONITOR.
[2021-11-05 08:00] VITALS: BP 115/78
[2021-11-05 10:35] VITALS: BP 115/78
[2021-11-05] MEDS ORDERED: FLEXERIL PO ×4 (10:48→10:51)
[2021-11-05] MEDS ORDERED: HYDROCHLOROTHIA25 M1 PO ×4 (10:48→10:51)
--- NOTE | 2021-11-05 13:28 | NUR ---
PT HAS MET HIS DISCHARGE GOALS. DISCHARGE ORDERS RECEIVED. REPORT CALLED TO [place], COPY OF ORDERS FAXED TO HER WELL A COPY WITH PATIENT. PT AND BELONGINGS TRANSPORTED TO EXIT, DISCHARGED BACK TO HIS JAIL IN STABLE CONDITION.
--- NOTE | 2021-11-05 16:30 | NUR ---
PLAN FOR THE PT TO D/C BACK TO HIS USP TODAY WITH USP STAFF OVERSIGHT. PT DOES NOT NEED HH PER TEAM MEETING. [facility] ADMIN INFORMED AND IN AGREEMENT WITH PLAN TO D/C. NO OTHER CM D/C PLANNING NEEDS ANTICIPATED. CM WILL REMAIN AVAILABLE TO ASSIST AND FOLLOW NEEDED.
== END 2021-11-05 13:39 | disposition home or self-care (01) | DRG 177 ==
LOC: M.REH 16:17
PROVIDERS: Internal Medicine; ADMIT Physical Medicine & Rehabilitation; ATTEND Physical Medicine & Rehabilitation
DX: U07.1 COVID-19 (principal); J80 Acute respiratory distress syndrome; J12.82 Pneumonia due to coronavirus disease 2019; F20.0 Paranoid schizophrenia; B49 Unspecified mycosis; R53.81 Other malaise; R53.1 Weakness; Z74.09 Other reduced mobility; F41.9 Anxiety disorder, unspecified; J02.9 Acute pharyngitis, unspecified; R56.9 Unspecified convulsions; D64.9 Anemia, unspecified; R26.9 Unspecified abnormalities of gait and mobility; G31.84 Mild cognitive impairment of uncertain or unknown etiology; R74.01 Elevation of levels of liver transaminase levels; R31.9 Hematuria, unspecified; I25.10 Atherosclerotic heart disease of native coronary artery without angina pectoris; Z91.018 Allergy to other foods; Z91.09 Other allergy status, other than to drugs and biological substances; Z79.899 Other long term (current) drug therapy